=== PATIENT | female | born 1990 | race Caucasian/White ===

== ENCOUNTER 2022-10-10 15:42 | Emergency (ER) | payer OTHER ==
[2022-10-10] MEDS ORDERED: ACETAMINOPHEN 325 MG TABLET (FP) PO ONE (15:55)
[2022-10-10] MEDS ORDERED: ACETAMINOPHEN 325 MG TABLET (FP) ONE (16:00)
[2022-10-10 16:03] VITALS: BP 134/77; PULSE 73; RESP 18; TEMP 98.7; BMI 22.6
== END 2022-10-10 16:25 | disposition home or self-care (01) ==
LOC: FER 15:42
DX: O9A.211 Injury, poisoning and certain other consequences of external causes complicating pregnancy, first trimester (principal); T23.201A Burn of second degree of right hand, unspecified site, initial encounter; X19.XXXA Contact with other heat and hot substances, initial encounter; Z3A.09 9 weeks gestation of pregnancy
CPT/HCPCS: 99283-25